=== PATIENT | female | born 1945 | race Caucasian/White ===

== ENCOUNTER 2016-10-14 11:52 | Emergency (ER) | payer MEDICAID ==
[2016-10-14 12:07] VITALS: TEMP 98.7; BMI 21.3
--- NOTE | 2016-10-14 14:41 | C.PDOC ---
History Of Present Illness 71 yr old female presents to the ER stating she tripped and fell 7 days ago and now complains of right knee pain and right lower leg pain. Patient denies head injury, back pain, foot pain, weakness or numbness. Time Seen by Provider: 10/14/16 12:16 Chief Complaint (Nursing): Lower Extremity Problem/Injury History Per: Patient History/Exam Limitations: no limitations Onset/Duration Of Symptoms: Days (7 days ago) Past Medical History Reviewed: Historical Data, Nursing Documentation, Vital Signs Vital Signs: Last Vital Signs Temp 98.7 F 10/14/16 12:07 Pulse 78 10/14/16 14:53 Resp 16 10/14/16 14:53 BP 118/75 10/14/16 14:53 Pulse Ox 99 10/14/16 17:09 - Medical History PMH: Anxiety, Depression, Diabetes, HTN Surgical History: Cholecystectomy - [facility] Procedures INJECT/INFUSE NEC (10/17/13) Family History: States: No Known Family Hx - Social History Hx Tobacco Use: No Hx Alcohol Use: No Hx Substance Use: No - Immunization History Hx Tetanus Toxoid Vaccination: No Hx Influenza Vaccination: No Hx Pneumococcal Vaccination: No Review Of Systems Except As Marked, All Systems Reviewed And Found Negative. Musculoskeletal: Positive for: Leg Pain (Right lower leg pain ), Other ((+) Right knee pain ). Negative for: Back Pain, Foot Pain Neurological: Negative for: Weakness, Numbness Physical Exam - Physical Exam Appears: Non-toxic, No Acute Distress Skin: Warm, Dry, No Rash Head: Atraumatic, Normacephalic Oral Mucosa: Moist Chest: Symmetrical, No Tenderness Cardiovascular: Rhythm Regular, No Murmur Respiratory: Normal Breath Sounds, No Rales, No Rhonchi, No Stridor, No Wheezing Extremity: Normal ROM, Tenderness (Right leg, anterior knee tenderness), Calf Tenderness (Right calf tenderness), Capillary Refill (<2), No Deformity, No Swelling Pulses: Left Dorsalis Pedis: Normal, Right Dorsalis Pedis: Normal Neurological/Psych: Oriented x3, Normal Speech, Normal Motor, Normal Sensation ED Course And Treatment O2 Sat by Pulse Oximetry: 99 (RA ) Pulse Ox Interpretation: Normal - Other Rad X-Ray - Right Knee X-Ray: Viewed By Me, Read By Radiologist Interpretation: PROCEDURE: Right Knee Radiographs. HISTORY: pain. COMPARISON : None. FINDINGS: BONES: Bone alignment and mineralization are normal. There is no acute fracture or bone destruction. JOINTS: Normal. No osteoarthritis. JOINT EFFUSION: None. OTHER FINDINGS: There is linear calcification lateral to the lateral femoral condyle. IMPRESSION: No acute fracture or dislocation. Linear calcification lateral to the lateral femoral condyle is likely related to ligament calcification which may be posttraumatic in etiology. - CT Scan/US Venous Duplex Other Rad Studies (CT/US): Read By Radiologist, Radiology Report Reviewed CT/US Interpretation: Negetive for DVT. Progress Note: Duplex was found negetive for DVT and XRay was negetive for any fractures or dislocations. Patient is put into a knee immobilizer. Instructed to follow up with ortho without fail. Medical Decision Making Medical Decision Making: PLAN: * Venous Duplex * X-Ray - Right Knee Disposition - Disposition Referrals: Dmitry Butt MD [Staff Provider] - Disposition: HOME/ ROUTINE Disposition Time: 14:39 Condition: STABLE Additional Instructions: Follow up with your PMD and Orthopedist within 1-2 days. Return to Ed if feel worse. Prescriptions: Ibuprofen [Motrin Tab] 400 mg PO Q8 #30 tab Acetaminophen [Tylenol 325mg tab] 2 tab PO Q6 #50 tab Instructions: Knee Sprain (ED) Print Language: THAI - Clinical Impression Clinical Impression: Knee sprain - PA / NET [employer] DEVELOPER / Resident Statement MD/DO has reviewed & agrees with the documentation as recorded. - Scribe Statement The provider has reviewed the documentation as recorded by the Scribe All medical record entries made by the Scribe were at my direction and personally dictated by me. I have reviewed the chart and agree that the record accurately reflects my personal performance of the history, physical exam, medical decision making, and the department course for this patient. I have also personally directed, reviewed, and agree with the discharge instructions and disposition.
[2016-10-14 14:54] VITALS: BP 118/75; PULSE 78; RESP 16
--- NOTE | 2016-10-14 15:29 | RAD ---
PROCEDURE: Right Knee Radiographs. HISTORY: pain COMPARISON: None. FINDINGS: BONES: Bone alignment and mineralization are normal. There is no acute fracture or bone destruction. JOINTS: Normal. No osteoarthritis. JOINT EFFUSION: None. OTHER FINDINGS: There is linear calcification lateral to the lateral femoral condyle. IMPRESSION: No acute fracture or dislocation. Linear calcification lateral to the lateral femoral condyle is likely related to ligament calcification which may be posttraumatic in etiology.
[2016-10-14 16:18] VITALS: O2SAT 99
--- NOTE | 2016-10-15 10:26 | VASCLAB ---
PROCEDURE: Right Lower Extremity Venous Duplex Exam. HISTORY: pain PRIORS: None. TECHNIQUE: Right common femoral, femoral, popliteal and posterior tibial, peroneal and great saphenous veins were evaluated. Flow was assessed with color Doppler, compressibility, assessment of phasic flow and augmentation response. Report prepared by LEONIDES Fairchild, RVT FINDINGS: RIGHT: 1. Common Femoral Vein: 1.1. Compressibility - Fully compressible: Thrombus - None: Flow - Phasic: Augmentation -Normal: Reflux - None. 2. Femoral Vein: 2.1. Compressibility - Fully compressible: Thrombus - None: Flow - Phasic: Augmentation -Normal: Reflux - None. 3. Popliteal Vein: 3.1. Compressibility - Fully compressible: Thrombus - None: Flow - Phasic: Augmentation -Normal: Reflux - None. 4. Posterior Tibial Vein: 4.1. Compressibility - Fully compressible: Thrombus - None: Flow - Phasic: Augmentation -Normal: Reflux - None. 5. Peroneal Vein: 5.1. Compressibility - Fully compressible: Thrombus - None: Flow - Phasic: Augmentation -Normal: Reflux - None. 6. Great Saphenous Vein: 6.1. Compressibility - Fully compressible: Thrombus -None: Flow - Phasic: Augmentation - Normal: Reflux - None. OTHER FINDINGS: IMPRESSION: No evidence of deep or superficial vein thrombosis of the right lower extremity with excellent venous flow. Normal valve function noted of the right side. Normal venous flow noted in the left common femoral vein.
== END 2016-10-14 14:53 | disposition home or self-care (01) ==
LOC: C.ER 11:52
DX: S83.91XA Sprain of unspecified site of right knee, initial encounter (principal); W01.0XXA Fall on same level from slipping, tripping and stumbling without subsequent striking against object, initial encounter

== ENCOUNTER 2017-03-20 11:41 | Emergency (ER) | payer MEDICAID ==
[2017-03-20 11:42] VITALS: BMI 21.3
[2017-03-20 11:54] VITALS: BP 162/70; PULSE 84; RESP 20; TEMP 97.3; O2SAT 98
--- NOTE | 2017-03-20 12:48 | C.PDOC ---
History Of Present Illness 71 y/o F p/w L shoulder pain x weeks/months. Patient has seen PMD for it already , suspects either arthritis or bursitis. Patient comes to ED requesting injection for pain medication, not oral medication. She denies injury, trauma, fever, limited ROM, swelling, fever. Time Seen by Provider: 03/20/17 12:41 Chief Complaint (Nursing): Upper Extremity Problem/Injury Past Medical History Vital Signs: Last Vital Signs Temp 97.3 F L 03/20/17 11:50 Pulse 84 03/20/17 11:50 Resp 20 03/20/17 11:50 BP 162/70 H 03/20/17 11:50 Pulse Ox 98 03/20/17 12:48 - Medical History PMH: Anxiety, Depression, Diabetes, HTN Denies: Hepatitis, HIV, Chronic Kidney Disease, Seizures, Sexually Transmitted Disease Surgical History: Cholecystectomy - [facility] Procedures GROUP PSYCHOTHERAPY (11/03/16) INDIVIDUAL PSYCHOTHERAPY, COGNITIVE-BEHAVIORAL (11/03/16) INJECT/INFUSE NEC (10/17/13) Family History: States: Unknown Family Hx - Social History Hx Tobacco Use: No Hx Alcohol Use: No Hx Substance Use: No - Immunization History Hx Tetanus Toxoid Vaccination: No Hx Influenza Vaccination: No Hx Pneumococcal Vaccination: No Review Of Systems Except As Marked, All Systems Reviewed And Found Negative. Constitutional: Negative for: Fever Respiratory: Negative for: Shortness of Breath Physical Exam - Physical Exam Additional Physical Exam Comments: Gen: NAD Head: NC/AT MSK: Tenderness at glenohumeral joint. No erythema, swelling, limited ROM. ED Course And Treatment O2 Sat by Pulse Oximetry: 98 Medical Decision Making Medical Decision Making: Patient with chronic shoulder pain, already being evaluated by PMD, requesting IM injection for pain. Will administer toradol, have f/u. Disposition - Disposition Referrals: Nicholas Holder MD [Medical Doctor] - Disposition: HOME/ ROUTINE Disposition Time: 12:48 Condition: STABLE Instructions: Shoulder Pain (ED) Forms: [facility] (Portuguese) - Clinical Impression Clinical Impression: Shoulder pain
== END 2017-03-20 13:04 | disposition home or self-care (01) ==
LOC: C.ER 11:41
DX: M25.512 Pain in left shoulder (principal); E11.9 Type 2 diabetes mellitus without complications; I10 Essential (primary) hypertension
CPT/HCPCS: 96372; 99283; J1885